=== PATIENT | female | born 1970 | race Caucasian/White ===

== ENCOUNTER → 2020-11-12 | Outpatient (REF) | payer OTHER | LOC: M LAB REF 17:46 | PROVIDERS: ATTEND Internal Medicine Nephrology | DX: C64.2 Malignant neoplasm of left kidney, except renal pelvis (principal) ==

== ENCOUNTER → 2021-10-03 | Outpatient (CLI) | payer OTHER ==
[~2021-10-03] MED LIST: ACETAMINOPHEN 325 MG TAB As Ordered ONE; AMLO2.5T3 PO; DOXY100C3 PO; ESTR1TD TD; GABA-282 PO; LIDOCAINE 1% MDV 20ML VIAL As Ordered ONE; VITA1CAP21 PO; VITMTA PO; ZOLP10TA2 PO
[2021-10-03 12:15] VITALS: BP 155/83
== END ==
LOC: M IRPRO 08:56
PROVIDERS: ATTEND Internal Medicine Pulmonary Disease
DX: R91.8 Other nonspecific abnormal finding of lung field (principal)

== ENCOUNTER 2022-12-22 12:28 | Day surgery (SDC) | payer OTHER ==
[~2022-12-22] VITALS: Ht 165.1 cm; Wt 87.5 kg
[~2022-12-22 12:28] MED LIST changes: -ACETAMINOPHEN 325 MG TAB As Ordered ONE; +ALBU2.5V10 PO; +ATIV1TAB10 PO; -LIDOCAINE 1% MDV 20ML VIAL As Ordered ONE; +NICO7DIS24 TD
[2022-12-22 13:09] VITALS: TEMP 97.5
[2022-12-22 13:17] LABS: HEMATOCRIT 40.7 % (36.0-47.0); HEMOGLOBIN 13.6 g/dl (12.0-15.5); MEAN CORPUSCULAR HEMOGLOBIN 31.3 pg (27.0-33.0); MEAN CORPUSCULAR HGB CONC 33.4 g/dl (32.0-36.5); MEAN CORPUSCULAR VOLUME 93.8 fl (80.0-96.0); PLATELET COUNT, AUTOMATED 308 10^3/uL (150-450); RED BLOOD COUNT 4.34 10^6/uL (4.00-5.40); WHITE BLOOD COUNT 7.9 10^3/uL (4.0-10.0)
[2022-12-22 13:30] LABS: INR 1.02; PROTHROMBIN TIME 13.1 SECONDS (12.5-14.5)
[2022-12-22 13:31] LABS: PARTIAL THROMBOPLASTIN TIME 30.9 SECONDS (24.8-34.2)
[2022-12-22 13:41] LABS: BLOOD UREA NITROGEN 11 MG/DL (9-23); CALCIUM LEVEL 8.6 MG/DL (8.5-10.1); CARBON DIOXIDE LEVEL 25 MMOL/L (20-31); CHLORIDE LEVEL 109 MMOL/L (98-107); CREATININE FOR GFR 0.67 MG/DL (0.55-1.30); GLOMERULAR FILTRATION RATE > 60.0 (>51); GLUCOSE, FASTING 98 MG/DL (60-100); LDH LACTATE DEHYDROGENASE 185 U/L (120-246); POTASSIUM SERUM 3.8 MMOL/L (3.5-5.1); SODIUM LEVEL 141 MMOL/L (136-145)
[2022-12-22] MEDS ORDERED: LIDOCAINE 1% MDV 20ML VIAL As Ordered ONE (14:08)
[2022-12-22 14:41] VITALS: BP 145/91; O2SAT 97
[2022-12-22 15:09] LABS: PH BODY FLUID 7.485 UNITS (NOT ESTABLISHED); SOURCE, BODY FLUID pH PLEURAL
[2022-12-22 15:17] LABS: PLEURAL FL COLOR PALE YELLOW (COLORLESS); SOURCE, BODY FLUID PLEURAL
[2022-12-22 15:18] LABS: APPEARANCE, BODY FLUID HAZY (CLEAR)
[2022-12-22 15:39] LABS: SOURCE, BODY FLUID ALBUMIN PLEURAL
[2022-12-22 15:44] LABS: SOURCE, BODY FLUID GLUCOSE PLEURAL; SOURCE, BODY FLUID TRIG PLEURAL; TRIGLYCERIDE, BODY FLUID 45 MG/DL (NOT ESTABLISHED)
[2022-12-22 15:45] LABS: LDH, BODY FLUID 171 U/L (NOT ESTABLISHED); SOURCE, BODY FLUID LDH PLEURAL
[2022-12-22 15:46] LABS: AMYLASE, BODY FLUID 39 U/L (NOT ESTABLISHED); CHOLESTEROL, BODY FLUID 121 MG/DL (NOT ESTABLISHED); SOURCE, BODY FLUID AMYLASE PLEURAL; SOURCE, BODY FLUID CHOL PLEURAL; SOURCE, BODY FLUID TOT PROTEIN PLEURAL; TOTAL PROTEIN, BODY FLUID 4.2 G/DL (NOT ESTABLISHED)
[2022-12-23 09:54] LABS: RHEUMATOID FACTOR QUANT < 3.5 IU/ML (<14)
== END 2022-12-22 15:18 | disposition home or self-care (01) ==
LOC: M SDC 12:28
PROVIDERS: ATTEND Internal Medicine Pulmonary Disease
DX: R84.6 Abnormal cytological findings in specimens from respiratory organs and thorax (principal); J91.8 Pleural effusion in other conditions classified elsewhere; Z87.891 Personal history of nicotine dependence; J43.1 Panlobular emphysema; R91.8 Other nonspecific abnormal finding of lung field; B37.0 Candidal stomatitis; Z79.51 Long term (current) use of inhaled steroids; Z79.891 Long term (current) use of opiate analgesic; Z79.899 Other long term (current) drug therapy; Z88.5 Allergy status to narcotic agent; Z88.8 Allergy status to other drugs, medicaments and biological substances

== ENCOUNTER → 2024-12-16 | Outpatient (CLI) | payer OTHER ==
[~2024-12-16] MED LIST changes: +GABA-1172 PO; -GABA-282 PO
== END ==
LOC: M PLARAD 09:58
PROVIDERS: ATTEND Surgery
DX: C34.31 Malignant neoplasm of lower lobe, right bronchus or lung (principal)
CPT/HCPCS: 78815; A9552